=== PATIENT | female | born 1980 | race Caucasian/White ===

== ENCOUNTER 2017-11-12 18:12 | Emergency (ER) | payer SELFPAY ==
[~2017-11-12] VITALS: Ht 160 cm; Wt 93.0 kg
[2017-11-12] MEDS ORDERED: QUET400T PO (18:51)
[2017-11-12] MEDS ORDERED: FLUO20CA36 PO (18:51)
[2017-11-12] MEDS ORDERED: IBUPROFEN 600 MG TABLET PO ONE (19:30)
[2017-11-12] MEDS ORDERED: IBUPROFEN 600 MG TABLET ONE (19:38)
--- NOTE | 2017-11-12 20:19 | NUR ---
Patient discharged to home in stable conditon. Written and verbal after care instructions given. Patient verbalizes understanding of instructions.
== END 2017-11-12 20:19 | disposition home or self-care (01) ==
LOC: ER 18:12
DX: S16.1XXA Strain of muscle, fascia and tendon at neck level, initial encounter (principal); M25.511 Pain in right shoulder; Z79.899 Other long term (current) drug therapy; V43.52XA Car driver injured in collision with other type car in traffic accident, initial encounter; Y93.89 Activity, other specified; Y92.410 Unspecified street and highway as the place of occurrence of the external cause; Y99.8 Other external cause status
CPT/HCPCS: 73060; 73110; A4663